=== PATIENT | male | born 1985 | race Caucasian/White ===

== ENCOUNTER 2019-12-04 12:35 | Emergency (ER) | payer OTHER ==
--- NOTE | 2019-12-04 13:45 | RAD REPORT ---
EXAM DESCRIPTION: CT - Spine Lumbar Wo Con - 12/04/2019 1:29 pm CLINICAL HISTORY: Radiculopathy. Pain;Radiculopathy COMPARISON: No comparisons TECHNIQUE: Axial noncontrast CT imaging of the lumbar spine was performed with coronal and sagittal re-formatted images. All CT scans are performed using dose optimization technique as appropriate and may include automated exposure control or mA/KV adjustment according to patient size. FINDINGS: No acute lumbar spine fracture seen. No aggressive marrow pattern or malalignment. Paraspinal tissues are normal in thickness. No paraspinal abscess or hematoma seen. Endplate osteophytes are present at L1-2, L2-3 L3-4. Posterior disc bulges are present lower lumbar s pine resulting central canal narrowing. Followup nonemergent MR imaging of the lumbar spine with was well further assessment. IMPRESSION: No acute lumbar spine abnormality is detected. Moderate lumbar spondylosis with multilevel disc bulging at the lower lumbar levels is noted. Followu p nonemergent MR imaging of the lumbar spine may be of value
--- NOTE | 2019-12-04 14:06 | EDPHYS ---
Physician Documentation [facility] Name: George Dupont Age: 34 yrs Sex: Male : 1985 Arrival Date: 12/04/2019 Time: 12:38 Bed 20 Private MD: REI Physician Hood Hong HPI: 12/04 13:30 This 34 yrs old Male presents to ER via Ambulatory with complaints of Leg snw Pain. 13:30 The patient presents with decreased range of motion, pain, location - left hip. The snw complaints affect the left hip. Onset: The symptoms/episode began/occurred 1 year(s) ago, and became worse today. Associated signs and symptoms: Pertinent positives: pt bent at waist while walking secondary to pain, no fever, no incontinence, no trauma. Severity of symptoms: At their worst the symptoms were moderate, severe. The patient has not experienced similar symptoms in the past. The patient has been recently seen by a physician: the patient's primary care provider, Dr. Byrne 09/21 - xrays. Historical: - Home Meds: 12:59 divalproex 500 mg oral TbEC nightly [Active]; lamotrigine 150 mg oral tab [Active]; hb Metoprolol Tartrate Oral [Active]; BuSpar Oral [Active]; - PMHx: 12:59 Bipolar disorder; Hypertension; hb - PSHx: 12:59 Tonsillectomy; Neck; hb - Immunization history:: Adult Immunizations up to date. - Coronavirus screen:: The patient has NOT traveled to [place], [place], or [place] in the past 14 days. The patient has NOT had contact with known/suspected case of Coronavirus? Proceed with normal triage procedures. - Social history:: Smoking status: Patient denies any tobacco usage or history of. - Ebola Screening: : No symptoms or risks identified at this time. ROS: 13:30 Constitutional: Negative for fever, chills, and weight loss, Eyes: Negative for injury, snw pain, redness, and discharge, ENT: Negative for injury, pain, and discharge, Neck: Negative for injury, pain, and swelling, Cardiovascular: Negative for chest pain, palpitations, and edema, Respiratory: Negative for shortness of breath, cough, wheezing, and pleuritic chest pain, Abdomen/GI: Negative for abdominal pain, nausea, vomiting, diarrhea, and constipation, Back: Negative for injury and pain, : Negative for injury, bleeding, discharge, and swelling, Skin: Negative for injury, rash, and discoloration, Neuro: Negative for headache, weakness, numbness, tingling, and seizure, Psych: Negative for depression, anxiety, suicide ideation, homicidal ideation, and hallucinations. 13:30 MS/extremity: Positive for pain, of the left hip. Exam: 13:28 Constitutional: This is a well developed, well nourished patient who is awake, alert, snw and in no acute distress. Head/Face: Normocephalic, atraumatic. Eyes: Pupils equal round and reactive to light, extra-ocular motions intact. Lids and lashes normal. Conjunctiva and sclera are non-icteric and not injected. Cornea within normal limits. Periorbital areas with no swelling, redness, or edema. ENT: Nares patent. No nasal discharge, no septal abnormalities noted. Tympanic membranes are normal and external auditory canals are clear. Oropharynx with no redness, swelling, or masses, exudates, or evidence of obstruction, uvula midline. Mucous membranes moist. Neck: Trachea midline, no thyromegaly or masses palpated, and no cervical lymphadenopathy. Supple, full range of motion without nuchal rigidity, or vertebral point tenderness. No Meningismus. Chest/axilla: Normal chest wall appearance and motion. Nontender with no deformity. No lesions are appreciated. Cardiovascular: Regular rate and rhythm with a normal S1 and S2. No gallops, murmurs, or rubs. Normal PMI, no JVD. No pulse deficits. Respiratory: Lungs have equal breath sounds bilaterally, clear to auscultation and percussion. No rales, rhonchi or wheezes noted. No increased work of breathing, no retractions or nasal flaring. Abdomen/GI: Soft, non-tender, with normal bowel sounds. No distension or tympany. No guarding or rebound. No evidence of tenderness throughout. Skin: Warm, dry with normal turgor. Normal color with no rashes, no lesions, and no evidence of cellulitis. Neuro: Awake and alert, GCS 15, oriented to person, place, time, and situation. Cranial nerves II-XII grossly intact. Motor strength 5/5 in all extremities. Sensory grossly intact. Cerebellar exam normal. Normal gait. Psych: Awake, alert, with orientation to person, place and time. Behavior, mood, and affect are within normal limits. 13:28 Back: pain, that is moderate, ROM is normal, CVA tenderness, is absent. 13:28 Musculoskeletal/extremity: Extremities: grossly normal except: noted in the left hip: decreased ROM, pain, ROM: limited passive range of motion, in the bilateral hip pain, Circulation is intact in all extremities. Sensation intact. Vital Signs: 12:56 Pulse 89; Resp 16; Temp 98.4; Pulse Ox 100% on R/A; Weight 95.25 kg; Height 6 ft. ah (182.88 cm); Pain 6/10; 12:56 Body Mass Index 28.48 (95.25 kg, 182.88 cm) MDM: 13:04 Patient medically screened. snw 14:09 Differential diagnosis: closed fracture, contusion, abrasion, tendonitis, lumbar snw radiculopathy. Data reviewed: vital signs, nurses notes, radiologic studies, CT scan. Data interpreted: Pulse oximetry: on room air is 100 %. Interpretation: normal. Counseling: I had a detailed discussion with the patient and/or guardian regarding: the historical points, exam findings, and any diagnostic results supporting the discharge/admit diagnosis, the presence of at least one elevated blood pressure reading (>120/80) during this emergency department visit, radiology results, the need for outpatient follow up, to return to the emergency department if symptoms worsen or persist or if there are any questions or concerns that arise at home. Special discussion: Based on the history and exam findings, there is no indication for further emergent testing or inpatient evaluation. I discussed with the patient/guardian the need to see the back specialist for further evaluation of the symptoms. I discussed with the patient/guardian the need to see the primary care provider for further evaluation of the symptoms. 12/04 13:09 Order name: CT Lumbar Spine Wo Con; Complete Time: 13:58 snw Administered Medications: 13:40 Drug: TORadol 30 mg Route: IM; Site: left gluteus; 14:00 Follow up: Response: No adverse reaction; Pain is decreased 13:50 Drug: Decadron 8 mg Route: PO; 14:15 Follow up: Response: Medication administered at discharge. Disposition: 12/04/19 14:05 Discharged to Home. Impression: Other spondylosis with radiculopathy, lumbar region, Pain in left hip, multilevel disc bulging in lumbar spine. - Condition is Stable. - Discharge Instructions: Lumbosacral Radiculopathy, Musculoskeletal Pain, Hip Pain, Cryotherapy, Heat Therapy. - Prescriptions for Diclofenac Sodium 75 mg Oral Tablet Sustained Release - take 1 tablet by ORAL route 2 times per day; 30 tablet. orphenadrine citrate 100 mg Oral Tablet Sustained Release - take 1 tablet by ORAL route 2 times per day As needed; 20 tablet. - Work release form, Medication Reconciliation Form, Thank You Letter, Antibiotic Education, Prescription Opioid Use form. - Follow up: Emergency Department; When: As needed; Reason: Worsening of condition. Follow up: Private Physician; When: 2 - 3 days; Reason: Recheck today's complaints, Continuance of care, Re-evaluation by your physician. Addendum: 12/06/2019 07:09 Co-signature as Attending Physician, Hood Hong MD I agree with the assessment and c warner plan of care. Signatures: Dispatcher [employer] EDNV Hood Hong MD MD cha Therrien, Shelly, [employer] Heather Gibbs, Halima Jean RN, RN RN Corrections: (The following items were deleted from the chart) 12/04 14:59 14:05 12/04/2019 14:05 Discharged to Home. Impression: Other spondylosis with ah radiculopathy, lumbar region; Pain in left hip; multilevel disc bulging in lumbar spine. Condition is Stable. Forms are Medication Reconciliation Form, Thank You Letter, Antibiotic Education, Prescription Opioid Use. Follow up: Emergency Department; When: As needed; Reason: Worsening of condition. Follow up: Private Physician; When: 2 - 3 days; Reason: Recheck today's complaints, Continuance of care, Re-evaluation by your physician. snw
--- NOTE | 2019-12-04 14:06 | ER ---
Nurse's Notes [facility] Name: George Dupont Age: 34 yrs Sex: Male : 1985 Arrival Date: 12/04/2019 Time: 12:38 Bed 20 Private MD: Diagnosis: Other spondylosis with radiculopathy, lumbar region;Pain in left hip;multilevel disc bulging in lumbar spine Presentation: 12/04 12:54 Presenting complaint: Left hip pain x 2 days. Denies injury. Pt recently seen by Dr. ravindra Byrne for low back and hip pain, told he may have RA, has not followed up with specialist. Transition of care: patient was not received from another setting of care. Onset of symptoms was December 03, 2019. Risk Assessment: Do you want to hurt yourself or someone else? Patient reports no desire to harm self or others. Care prior to arrival: Medication(s) given: Motrin, at 1000. 12:54 Method Of Arrival: Ambulatory 12:54 Acuity: ENRRIQUE 4 hb 14:58 Initial Sepsis Screen: Does the patient meet any 2 criteria? No. Patient's initial sepsis screen is negative. Does the patient have a suspected source of infection? No. Patient's initial sepsis screen is negative. Historical: - Home Meds: 12:59 divalproex 500 mg oral TbEC nightly [Active]; lamotrigine 150 mg oral tab [Active]; hb Metoprolol Tartrate Oral [Active]; BuSpar Oral [Active]; - PMHx: 12:59 Bipolar disorder; Hypertension; hb - PSHx: 12:59 Tonsillectomy; Neck; hb - Immunization history:: Adult Immunizations up to date. - Coronavirus screen:: The patient has NOT traveled to [place], [place], or [place] in the past 14 days. The patient has NOT had contact with known/suspected case of Coronavirus? Proceed with normal triage procedures. - Social history:: Smoking status: Patient denies any tobacco usage or history of. - Ebola Screening: : No symptoms or risks identified at this time. Screenin:57 Abuse screen: Denies threats or abuse. Nutritional screening: No deficits noted. Tuberculosis screening: No symptoms or risk factors identified. Fall Risk None identified. Assessment: 13:09 General: Appears in no apparent distress. Behavior is calm, cooperative, appropriate for age. Pain: Complains of pain in left hip Pain does not radiate. Pain currently is 6 out of 10 on a pain scale. Quality of pain is described as dull, throbbing, Pain began 1 day ago. Is continuous, Alleviated by repositioning, sitting Aggravated by walking, standing. Neuro: Level of Consciousness is awake, alert, obeys commands, Oriented to person, place, time, situation, Gait is steady. Respiratory: Airway is patent Respiratory effort is even, unlabored, Respiratory pattern is regular. Musculoskeletal: Circulation, motion, and sensation intact. Range of motion: intact in all extremities. Injury Description: reports no injury. Vital Signs: 12:56 Pulse 89; Resp 16; Temp 98.4; Pulse Ox 100% on R/A; Weight 95.25 kg; Height 6 ft. ah (182.88 cm); Pain 6/10; 12:56 Body Mass Index 28.48 (95.25 kg, 182.88 cm) ED Course: 12:38 Patient arrived in ED. rg4 12:45 Deanna Nath FNP-C is PHCP. snw 12:45 Hood Hong MD is Attending Physician. snw 12:56 Triage completed. hb 12:56 Arm band placed on. hb 13:09 Halima Foster, RN is Primary Nurse. 13:28 CT completed. Patient tolerated procedure well. Patient moved back from CT. bq 13:33 CT Lumbar Spine Wo Con In Process Unspecified. EDMS 14:57 No provider procedures requiring assistance completed. Patient did not have IV access during this emergency room visit. 14:58 Patient has correct armband on for positive identification. Bed in low position. Call light in reach. Administered Medications: 13:40 Drug: TORadol 30 mg Route: IM; Site: left gluteus; 14:00 Follow up: Response: No adverse reaction; Pain is decreased 13:50 Drug: Decadron 8 mg Route: PO; 14:15 Follow up: Response: Medication administered at discharge. Outcome: 14:00 Patient left the ED. 14:00 Discharged to home via wheelchair. 14:00 Condition: good 14:00 Discharge instructions given to patient, Instructed on discharge instructions, medication usage, Demonstrated understanding of instructions, follow-up care, medications, Prescriptions given X 2. 14:05 Discharge ordered by MD. villarreal Signatures: Dispatcher [employer] EDMS Deanna Nath, ALICIA-C [employer] OPERATOR-[employer] Tessie Peraza Heather, FELICIA RN Caitlyn Smith [id number] Halima Foster RN RN Corrections: (The following items were deleted from the chart) 14:57 12:56 BP 157 / 100; Pulse 89bpm; Resp 16bpm; Pulse Ox 100% RA; Temp 98.4F; 95.25 kg; Height 6 ft.; BMI: 28.4; Pain 6/10; hb 18:59 18:56 Response: No adverse reaction; Pain is decreased [facility] 19: 14:58 Discharged to home via wheelchair, [facility] 19: 14:58 Condition: good [facility] 19: 14:58 Discharge instructions given to patient, Instructed on discharge instructions, medication usage, Demonstrated understanding of instructions, follow-up care, medications, Prescriptions given X 2, 19: 14:59 Patient left the ED. [facility]
[2019-12-04] MEDS ORDERED: KETOROLAC 30 MG/ML INJ ONE (14:12)
[2019-12-04] MEDS ORDERED: dexAMETHasone 4 MG TAB ONE (14:24)
[2019-12-04 15:06] VITALS: TEMP 98.4; O2SAT 100
== END 2019-12-04 14:59 | disposition home or self-care (01) ==
LOC: ER 12:35
DX: M47.896 Other spondylosis, lumbar region (principal); M51.26 Other intervertebral disc displacement, lumbar region; I10 Essential (primary) hypertension; F31.9 Bipolar disorder, unspecified
CPT/HCPCS: 72131; 96372; 99284; J8540